=== PATIENT | female | born 2000 | race American Indian/Alaskan Native ===

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

== ENCOUNTER 2023-04-07 19:23 | Emergency (ER) | payer MEDICAID ==
[2023-04-07 19:52] VITALS: BP 99/81; PULSE 96
== END 2023-04-07 19:57 | disposition home or self-care (01) ==
LOC: DL.ED 19:23
DX: S99.921A Unspecified injury of right foot, initial encounter (principal); W01.0XXA Fall on same level from slipping, tripping and stumbling without subsequent striking against object, initial encounter
CPT/HCPCS: 73620-RT; 99283